=== PATIENT | male | born 1990 | race Caucasian/White ===

== ENCOUNTER 2018-12-22 22:57 | Emergency (ER) | payer SELFPAY ==
[~2018-12-22] VITALS: Ht 185.4 cm; Wt 86.4 kg
[2018-12-22 23:03] VITALS: BP 137/88
[2018-12-22] MEDS ORDERED: TESTOSTERONE IM (23:20)
[2018-12-22] MEDS ORDERED: ANAS1TAB50 PO (23:20)
[2018-12-22] MEDS ORDERED: ALPR0.5T8 PO (23:31)
[2018-12-22 23:44] LABS: AMPHET/METH SCREEN,URINE NEGATIVE (NEGATIVE); BARBITURATE SCREEN, URINE NEGATIVE (NEGATIVE); BENZODIAZEPINES SCREEN,URINE POSITIVE (NEGATIVE); CANNABINOID SCREEN,URINE POSITIVE (NEGATIVE); COCAINE SCREEN,URINE NEGATIVE (NEGATIVE); METHADONE SCREEN, URINE NEGATIVE (NEGATIVE); OPIATE SCREEN,URINE POSITIVE (NEGATIVE); PHENCYCLIDINE SCREEN,URINE NEGATIVE (NEGATIVE)
== END 2018-12-23 05:31 | disposition left against medical advice (07) ==
LOC: EMS 22:59
DX: F41.9 Anxiety disorder, unspecified (principal); Z53.21 Procedure and treatment not carried out due to patient leaving prior to being seen by health care provider
CPT/HCPCS: 93005